=== PATIENT | female | born 1995 | race Hispanic/Latino ===

== ENCOUNTER 2017-11-09 15:10 | Day surgery (SDC) | payer OTHER ==
[2017-11-09 16:22] VITALS: BMI 34.7
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
== END 2017-11-09 16:55 | disposition home or self-care (01) ==
LOC: ERS 15:10 → L&D/OP 15:50
PROVIDERS: ATTEND Obstetrics & Gynecology
DX: Z04.3 Encounter for examination and observation following other accident (principal); O99.89 Other specified diseases and conditions complicating pregnancy, childbirth and the puerperium; M54.5 Low back pain; R10.9 Unspecified abdominal pain; Z3A.27 27 weeks gestation of pregnancy

== ENCOUNTER 2017-12-15 12:24 | Day surgery (SDC) | payer OTHER ==
[2017-12-15 13:19] VITALS: BMI 35.5
[2017-12-15 14:22] LABS: Bilirubin Negative (Negative); Blood, Urine Negative (Negative); Clarity CLEAR (Clear); Glucose, Urine (Dipstick) Negative (Negative); Leukocyte Negative (Negative); Nitrite Negative (Negative); Protein, Urine (Dipstick) Negative (Neg-Trace); Specific Gravity, Urine 1.021 (1.002-1.036)
[2017-12-15 14:27] LABS: Bacteria/HPF None Seen HPF (None Seen); Hyaline Casts/LPF 0-3 HYALINE CAST LPF (0-3 Hyaline); Pathc Cast-AUWi Flag 0.27 (0-2.49); RBC/HPF 0-3 HPF (0-3); Squamous Epithelial 0-3 HPF (0-3); WBC/HPF 0-3 HPF (0-3)
[2017-12-15 14:59] LABS: FFN Internal QC Analyzer PASS (PASS); FFN Internal QC Cassette PASS (PASS); Fetal Fibronectin Negative (Negative)
--- NOTE | 2017-12-15 17:18 | PRG ---
DATE OF SERVICE: 12/15/2017 PRIMARY OB: Dr. Bakari Dukes. CHIEF COMPLAINT: Abdominal pains. HISTORY OF PRESENT ILLNESS: The patient is a 22-year-old G2, P1 female with an intrauterine at 32 weeks and 5 days who presented to labor and delivery ER from work with complaints of uterine contractions that she has been feeling about once every 40 minutes. The patient has also been experiencing pelvic pressure. She came for evaluation. The patient reports that she works in at [employer] and helps with the residential duties. She denies any leakage of fluid , any vaginal bleeding. She denies any fever, fall, headache, chest pain, shortness of breath, nausea, vomiting, diarrhea, or constipation. She does report that she has a small rash on her abdomen that itches. Denies any vaginal bleeding, or leakage of fluid. She reports some urinary urgency and frequency. She reports the discharge that has changed in odor. PAST MEDICAL HISTORY: Negative. PAST SURGICAL HISTORY: Negative. ALLERGIES: No known drug allergies. MEDICATIONS: vitamins. SOCIAL HISTORY: Denies drug, alcohol or tobacco use. ALLERGIES: No known drug allergies. OBSTETRIC HISTORY: The patient was recently diagnosed with gestational diabetes ; however, has not begun monitoring as she has an appointment tomorrow to discuss this new step in her . OB LABS: Blood type is O positive, antibody screen is negative. She is rubella immune, hepatitis B surface antigen nonreactive, RPR nonreactive, HIV nonreactive. REVIEW OF SYSTEMS: Per HPI. PHYSICAL EXAMINATION: VITAL SIGNS: Blood pressure is 108/58, heart rate of 75, respiratory rate of 16 , temperature 98.1. GENERAL: She appears to be in no acute distress. She is alert and oriented, and cooperative and pleasant to interact with. HEENT: Head is normocephalic, atraumatic. LUNGS: Clear to auscultation bilaterally. HEART: Regular rate and rhythm. ABDOMEN: Soft, gravid, nontender. EXTREMITIES: Nontender, nonedematous. CERVICAL: Closed and thick. fibronectin, VPIII and UA were all collected. heart tracing was performed for abdominal pains and throughout in labor. The patient is noted to be in the 130s with moderate long-term variability, positive accelerations, no decelerations. Tocometer showed some irritability. Fibronectin is negative. UA is positive for ketones, has been negative for any signs of infection and VPIII is positive for yeast, negative for Trichomonas or bacterial vaginosis. ASSESSMENT AND PLAN: The patient is a 22-year-old female with intrauterine at 32 weeks with complaints of abdominal pains and infrequent contractions. Her workup has yielded positive result for yeast infection. She has been given labor precautions and has been counseled to take over-the -counter anti-yeast medication such as Monistat and to notify her provider the next time she is with her for with the results. fetus is reactive. MTDD
== END 2017-12-15 15:40 | disposition home or self-care (01) ==
LOC: L&D/OP 12:24
PROVIDERS: ATTEND Obstetrics & Gynecology
DX: O47.03 False labor before 37 completed weeks of gestation, third trimester (principal); O24.419 Gestational diabetes mellitus in pregnancy, unspecified control; O98.813 Other maternal infectious and parasitic diseases complicating pregnancy, third trimester; B37.3 Candidiasis of vulva and vagina; O99.89 Other specified diseases and conditions complicating pregnancy, childbirth and the puerperium; N89.8 Other specified noninflammatory disorders of vagina; Z91.040 Latex allergy status; Z79.899 Other long term (current) drug therapy; Z3A.32 32 weeks gestation of pregnancy
CPT/HCPCS: 81001; 82731; 87480; 87510; 87660; 99283

== ENCOUNTER 2017-12-25 20:34 | Day surgery (SDC) | payer OTHER ==
[2017-12-25 21:03] VITALS: BP 122/63; TEMP 98.2; BMI 35.1
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
[2017-12-25] MEDS ORDERED: Acetaminophen 500 MG TAB PO PRN (21:15)
--- NOTE | 2017-12-25 22:54 | PDOC.EVN ---
Event Note - Event Note Event Note: Strip category 1, no evidence labor. Will obs for 1 more hour.
== END 2017-12-26 | disposition home or self-care (01) ==
LOC: L&D/OP 20:34
PROVIDERS: ATTEND Obstetrics & Gynecology
DX: Z04.1 Encounter for examination and observation following transport accident (principal); O24.410 Gestational diabetes mellitus in pregnancy, diet controlled; Z3A.34 34 weeks gestation of pregnancy; Z79.899 Other long term (current) drug therapy
CPT/HCPCS: 99283

== ENCOUNTER 2018-01-11 13:38 | Day surgery (SDC) | payer OTHER ==
[2018-01-11 14:35] VITALS: BP 116/61; TEMP 98.7; BMI 36.5
--- NOTE | 2018-01-11 14:59 | PDOC.EVN ---
Event Note - Event Note Event Note: @1500: Triage: HPI: I was just called on Ms Ayala: She is a 22 year old prior at 35 weeks and 4 days with irregular CTXs. Some HAs on/off. No VB, no visual changes, no RUQ pain Review of systems: complete ROS performed and negative, as per HPI Med History: neg Social HX: neg Surg history: none PHYSICAL EXAM: 116/60s, afebrile pulse 90s NAD Abd soft NT CX: fingertip/thick/high Monitors: Cat 1 no ctx on toco Assessment/Plan: Threatened PTL at 35 weeks, CX fingertip. Low suspicion for PTL at this time. We will obs in L&D and recheck in one hour. BPs normal Offer tylenol PRN
[2018-01-11] MEDS ORDERED: Acetaminophen 500 MG TAB PO SCH (15:00)
--- NOTE | 2018-01-11 16:59 | PDOC.EVN ---
Event Note - Event Note Event Note: @1650: Patient seen by me at bedside. Vitals again reviewed with her: BP 116/ 57. Cat 1 strip. Recheck XC ws 1cm by RN. We are stable for outpatient follow up. Has appointment with dr varghese this Tuesday. Info given on latent labor.
== END 2018-01-11 17:05 | disposition home or self-care (01) ==
LOC: L&D/OP 13:38
PROVIDERS: ATTEND Obstetrics & Gynecology
DX: O60.03 Preterm labor without delivery, third trimester (principal); Z3A.35 35 weeks gestation of pregnancy; Z79.899 Other long term (current) drug therapy
CPT/HCPCS: 99282

== ENCOUNTER 2018-02-06 05:30 | Inpatient (IN) | payer OTHER ==
[2018-02-06] MEDS ORDERED: Meperidine HCl/PF 25 MG/ML VIAL IM/IV PRN (06:05)
[2018-02-06] MEDS ORDERED: Ondansetron HCl/PF 4 MG/2 ML Vial IVP PRN ×2 (06:05→18:35)
[2018-02-06] MEDS ORDERED: Acetaminophen/Codeine 30-300mg Tablet PO PRN ×4 (06:05→18:35)
[2018-02-06] MEDS ORDERED: LR 500 ML/Oxytocin 10 units 500 ML IV SCH ×2 (06:05)
[2018-02-06] MEDS ORDERED: Promethazine HCl 25 MG/ML VIAL IM PRN (06:05)
[2018-02-06] MEDS ORDERED: LR / Pitocin 40 units/1000 ml 1,000 ML IV PRN (06:05)
[2018-02-06] MEDS ORDERED: Lidocaine 1% (PF) 30 ML VIAL SC PRN (06:05)
[2018-02-06] MEDS ORDERED: Ibuprofen 800 MG TAB PO PRN (06:05)
[2018-02-06 06:24] VITALS: BMI 36.5
[2018-02-06] MEDS: Lactated Ringer's 1,000 ML IV SCH ×2 (06:30→14:33)
[2018-02-06 06:45] LABS: Hemoglobin 11.1 g/dL (12.0-16.0); Mean Corpuscular HGB CONC 34.3 g/dL (32.0-36.0); Mean Corpuscular Hemoglobin 31.1 pg (27.0-31.0); Mean Corpuscular Volume 90.7 fl (81.0-99.0); Mean Platelet Volume 7.4 fL (7.4-10.4); Platelet Count 310 thou/uL (130-400); RBC Distribution Width 12.6 % (11.5-14.5); Red Blood Cell (RBC) Count 3.57 mill/uL (4.20-5.40); White Blood Cell (WBC) Count 8.3 thou/uL (4.8-10.8)
[2018-02-06 07:25] LABS: HBSAg Index 0.16 S/CO (0-0.99); Hep B Surf Ag Non-Reactive S/CO (NonReactive)
--- NOTE | 2018-02-06 09:13 | PDOC.LDHP ---
Labor and Delivery H&P Chief complaint: scheduled induction HPI: Pt is a 23yo @ 39.2 w A1DM here for scheduled elective IOL. Current gestational age (weeks): 39 Due date: 02/11/18 Dating criteria: last menstrual period, first trimester ultrasound Grav: 2 Para: 1 Current complications: gestational diabetes (A1) Abnormal US findings: No Current medications: pre- vitamins Previous surgical history: none Allergies/Adverse Reactions: Allergies Allergy/AdvReac Type Severity Reaction Status Date / Time No Known Allergies Allergy Verified 02/06/18 06:28 Social history: none - Physical Exam Vital signs reviewed and normal: yes General: resting Heart: RRR Lungs: nonlabored breathing Abdomen: gravid Extremeties: trace edema FHT: category 1 - Vaginal Exam cm dilated: 2 Effacement: 50% Station: -2 - OB Labs Blood type: O RH: positive Antibody Screen: negative HIV: negative RPR: negative HEPSAg: negative 1 hour GCT: positive 3 hour GTT: positive GBS: negative Urine drug screen: not done Rubella: immune - Assessment L&D Assessment: elective induction at term - Plan Plan: admit to L&D, cervical ripening, informed consent obtained, anesthesia consult for pain management -: A/P: 23yo @ 39.2 w favorable cervix, A1DM, desires IOL AROM on admit exam w clear fluid. FHT reassuring.
--- NOTE | 2018-02-06 12:18 | PDOC.LDPN ---
Labor & Delivery Progress Note - Subjective Subjective: painful contractions - Objective Vital signs reviewed and normal: yes General: breathing through contractions Dilation: 5 Station: -1 FHT: category 1 [place] contractions every: 2 AROM: clear fluid - Assessment (1) 39 weeks gestation of Code(s): Z3A.39 - 39 WEEKS GESTATION OF Current Visit: Yes Status : Acute (2) Gestational diabetes mellitus (GDM) Code(s): O24.419 - GESTATIONAL DIABETES MELLITUS IN , UNSP CONTROL Current Visit: Yes Status: Acute Plan: continue plan of care -: A/P: Transitioning to active phase. FHT reassuring.
--- NOTE | 2018-02-06 16:44 | PDOC.OPDEL ---
OB Operative/Delivery Note Delivery Dr/Surgeon: Ernst Pre-Delivery Diagnosis: elective induction Weeks gestation: 39 Anesthesia: none - Findings A Sex: female - Additional Findings/Plan Placenta delivered: spontaneous Repaired Obstetrical Laceration: none Estimated blood loss: 300ml Post delivery plan: routine recovery
[2018-02-06] MEDS ORDERED: Lanolin Ointment 7 GM TUBE TOP PRN (18:35)
[2018-02-06] MEDS ORDERED: Benzocaine/Menthol 20-0.5% 60 ML CAN TOP PRN (18:35)
[2018-02-06] MEDS ORDERED: Adacel (T-DAP) 0.5 ML VIAL IM ONE (18:35)
[2018-02-06] MEDS ORDERED: Milk Of Magnesia 30 ML UDCUP PO PRN (18:35)
[2018-02-06] MEDS ORDERED: diphenhydrAMINE 25 MG CAP PO PRN (18:35)
[2018-02-06] MEDS ORDERED: Preparation H Ointment 28 GM TUBE PR PRN (18:35)
[2018-02-06] MEDS ORDERED: LR / Pitocin 40 units/1000 ml 1,000 ML IV SCH (18:35)
[2018-02-06] MEDS ORDERED: Bisacodyl 10 MG SUPP PR PRN (18:35)
[2018-02-06] MEDS ORDERED: Ferrous Sulfate 325 MG TAB PO SCH (18:45)
[2018-02-07] MEDS: Ibuprofen 800 MG TAB PO SCH ×3 (00:35→14:34)
[2018-02-07] MEDS: Docusate Calcium (SURFAK) 240 MG CAP PO SCH ×2 (00:36→08:41)
[2018-02-07] MEDS: Ferrous Sulfate 325 MG TAB PO SCH ×2 (07:52→18:10)
--- NOTE | 2018-02-07 07:53 | PDOC.PP ---
Post Progress Note Post Day #: 1 Subjective: nursing well, no concerns, min lochia PO intake tolerated: yes Flatus: yes Ambulation: yes Vital Signs (12 hours) Temp Pulse Resp BP 02/07/18 04:00 98.1 F 77 18 100/55 L 02/07/18 00:35 98.0 F 83 18 98/48 L Weight Weight 181 lb - Physical Examination General: NAD Respiratory: non-labored breathing Abdominal: no distention Fundus firm & at: below umb Extremities: negative homans (B) Skin: no rash Neurological: no gross focal deficits Psychiatric: A&Ox3, normal affect Result Diagrams: 02/06/18 06:16 Additional Labs: Post Labs Blood Type O POSITIVE 02/06/18 06:16 Hep Bs Antigen Non-Reactive S/CO (NonReactive) 02/06/18 06:16 (1) 39 weeks gestation of Code(s): Z3A.39 - 39 WEEKS GESTATION OF Status: Acute (2) Vaginal delivery Code(s): O80 - ENCOUNTER FOR FULL-TERM UNCOMPLICATED DELIVERY Status: Acute - Assessment/Plan A/P: 23yo sp TSVD without complication. PPD1, desires DC home today.
[2018-02-07] MEDS ORDERED: Prenatal Vitamin 1 TAB PO SCH (09:00)
[2018-02-07 12:18] VITALS: BP 110/62; TEMP 98.2
== END 2018-02-07 18:30 | disposition home or self-care (01) | DRG 775 ==
LOC: L&D 05:52 → 3SW 18:31
PROVIDERS: ADMIT Obstetrics & Gynecology; ATTEND Obstetrics & Gynecology
PROC: 10E0XZZ Delivery of Products of Conception, External Approach (ICD-10-PCS; principal; 2018-02-06)
PROC: 3E0P7VZ Introduction of Hormone into Female Reproductive, Via Natural or Artificial Opening (ICD-10-PCS; 2018-02-06)
PROC: 10907ZC Drainage of Amniotic Fluid, Therapeutic from Products of Conception, Via Natural or Artificial Opening (ICD-10-PCS; 2018-02-06)
PROC: 3E0234Z Introduction of Serum, Toxoid and Vaccine into Muscle, Percutaneous Approach (ICD-10-PCS; 2018-02-07)
DX: O24.420 Gestational diabetes mellitus in childbirth, diet controlled (principal); Z23 Encounter for immunization; Z37.0 Single live birth; Z3A.39 39 weeks gestation of pregnancy
CPT/HCPCS: 36415; 36416; 85027; 86850; 86900; 86901; 87340; 90715; J0595; J2001; J7120

== ENCOUNTER 2020-01-02 18:13 | Emergency (ER) | payer OTHER, SELFPAY ==
--- NOTE | 2020-01-02 19:14 | RAD ---
EXAM CHEST TWO VIEWS: 01/02/20 HISTORY: Cough. COMPARISON: None. FINDINGS: Normal cardiac silhouette. Lungs and pleural spaces are clear. No pneumothorax or osseous abnormaliti es. IMPRESSION: No acute cardiopulmonary process. POS: PPP
== END 2020-01-02 20:30 | disposition home or self-care (01) ==
LOC: ERS 18:13
DX: J20.9 Acute bronchitis, unspecified (principal); G43.909 Migraine, unspecified, not intractable, without status migrainosus
CPT/HCPCS: 71046; 94640; J7620

== ENCOUNTER 2020-11-12 12:44 | Emergency (ER) | payer SELFPAY ==
[2020-11-12 17:57] LABS: SARS-CoV-2 MS2 Positive; SARS-CoV-2 N Gene Positive; SARS-CoV-2 S Gene Positive; SARS-CoV-2 by NAA DETECTED (NotDetected); SARS-CoV-2 orf1ab Positive
== END 2020-11-12 14:15 | disposition home or self-care (01) ==
LOC: ERS 12:44
DX: U07.1 COVID-19 (principal)
CPT/HCPCS: 87635; 87804; 99284; U0003